=== PATIENT | female | born 1970 | race Caucasian/White ===

== ENCOUNTER 2024-01-11 16:02 | Outpatient (CLI) | payer OTHER, SELFPAY ==
--- NOTE | 2024-01-11 16:30 | US_ITS ---
WS: [id number] THYROID ULTRASOUND HISTORY: thyroid cancer COMPARISON: None available. Status post complete thyroidectomy for thyroid cancer. No mass or abnormality noted within the thyroi d bed. There is no adenopathy. IMPRESSION: Status post complete thyroidectomy. No recurrent mass and no adenopathy.
== END 2024-01-11 16:03 | disposition home or self-care (01) ==
LOC: RAD 16:02
PROVIDERS: PCP Family Medicine; Visit Provider Internal Medicine
DX: C73 Malignant neoplasm of thyroid gland (principal); E07.9 Disorder of thyroid, unspecified; E03.9 Hypothyroidism, unspecified; E21.5 Disorder of parathyroid gland, unspecified
CPT/HCPCS: 76536

== ENCOUNTER 2025-03-29 08:09 | Outpatient (CLI) | payer OTHER, SELFPAY ==
--- NOTE | 2025-03-29 08:00 | US_ITS ---
WS: [id number] THYROID ULTRASOUND HISTORY: Prior thyroidectomy. COMPARISON: 01/11/2024 Status post complete thyroidectomy. No recurrent thyroid tissue or adenopathy along the thyroid change. There are small bilateral cervical chain lymph nodes. US/US thyroid [id number] IMPRESSION: Prior thyroidectomy. No residual or recurrent thyroid tissue at the thyroid bed s.
== END 2025-03-29 08:10 | disposition home or self-care (01) ==
LOC: RAD 08:10
PROVIDERS: PCP Family Medicine; Visit Provider Internal Medicine
DX: E55.9 Vitamin D deficiency, unspecified (principal); Z80.8 Family history of malignant neoplasm of other organs or systems; E03.9 Hypothyroidism, unspecified; C73 Malignant neoplasm of thyroid gland; Z98.890 Other specified postprocedural states; R59.0 Localized enlarged lymph nodes
CPT/HCPCS: 76536